=== PATIENT | male | born 1985 | race Caucasian/White ===

== ENCOUNTER → 2018-10-08 09:23 | Outpatient (CLI) | payer OTHER, SELFPAY ==
--- NOTE | 2018-10-08 | DI.CT.S_ITS ---
PROCEDURE: CT CHEST ABD PEL WO CON INDICATIONS: Localized enlarged lymph nodes TECHNIQUE: After the administration of oral contrast, 5 mm thick sections acquired from the lung apices to the symphysis pubis. 5 mm thick coronal and sagittal reformats acquired, with additional 7 mm coronal MIP reformats through the lungs. For radiation dose reduction, the following was used: automated exposure control, adjustment of mA and/or kV according to patient size. COMPARISON: None. FINDINGS: Image quality: Excellent. CHEST: Lungs and pleura: No acute pulmonary opacities. No pleural effusions or pneumothorax. Central and peripheral airways are patent are normal in caliber. Mediastinum: Heart size is normal. No pericardial effusion. No mediastinal adenopathy by CT size criteria. Thoracic aorta and central pulmonary arteries are normal in size. Esophagus is normal in caliber. There is a small hiatal hernia. Chest wall: No axillary or supraclavicular adenopathy by size criteria. Thyroid gland is within normal limits. ABDOMEN: Solid organs: Liver is normal in size. Gallbladder is within normal limits. Pancreas is normal in contours. Spleen is enlarged No adrenal nodules. Both kidneys are normal in size, without hydronephrosis or nephrolithiasis. Peritoneum and bowel: Small and large bowel loops are normal in caliber and wall thickness. No free fluid or air. The appendix is visualized and is within normal limits. Mild sigmoid diverticulosis is seen, no CT evidence of acute diverticulitis. Nodes and vessels: No retroperitoneal or mesenteric adenopathy by size criteria. Aorta and inferior vena cava are normal in size. Miscellaneous: No ventral hernias. PELVIS: Genitourinary: Bladder wall thickness is normal. Miscellaneous: No inguinal hernias or adenopathy. Bones: No suspicious bony lesions. No vertebral body compression fractures. IMPRESSION: 1. No lymphadenopathy is seen in chest, abdomen or pelvis. 2. Splenomegaly, no gross discrete splenic lesion is seen. 3. Bilateral lungs are clear. No acute inflammatory process is seen within the abdomen or pelvis. Dictated by: Luis Brito M.D. on 10/08/2018 at 12:57 Approved by: Luis Brito M.D. on 10/08/2018 at 13:08
== END ==
PROVIDERS: Visit Provider Internal Medicine Rheumatology
DX: R59.0 Localized enlarged lymph nodes (principal); R16.1 Splenomegaly, not elsewhere classified
CPT/HCPCS: 71250; 74176